=== PATIENT | female | born 1960 | race Caucasian/White ===

== ENCOUNTER 2020-12-19 07:28 | Outpatient (CLI) | payer OTHER ==
[~2020-12-19 07:28] MED LIST: ANTIVERT12.5 MG PO; INTESTINEX1 CAP PO; NEXIUM10 MG; PROTONIX40 MG PO; TOPROL XL25 MG; [UNRECOGNIZED DRUG - OTHER]
== END 2020-12-19 07:43 | disposition home or self-care (01) ==
LOC: TOM 07:28
PROVIDERS: ATTEND Internal Medicine Gastroenterology
DX: K57.90 Diverticulosis of intestine, part unspecified, without perforation or abscess without bleeding (principal); Z12.11 Encounter for screening for malignant neoplasm of colon

== ENCOUNTER 2021-07-08 07:56 | Emergency (ER) | payer OTHER ==
[~2021-07-08] VITALS: Ht 157.5 cm; Wt 70.3 kg
== END 2021-07-08 14:23 ==
LOC: ER 07:56
DX: M54.2 Cervicalgia (principal)

== ENCOUNTER 2022-07-27 06:15 | Day surgery (SDC) | payer OTHER ==
[~2022-07-27] VITALS: Ht 157.5 cm; Wt 65.8 kg
[~2022-07-27 06:15] MED LIST changes: +ATORVASTATIN CA20 MG; +NEXIUM2.5 MG PO
== END 2022-07-27 16:15 | disposition home or self-care (01) ==
LOC: CIR.AMB 06:15
PROVIDERS: ATTEND Urology
DX: N20.1 Calculus of ureter (principal); Z88.5 Allergy status to narcotic agent; Z20.822 Contact with and (suspected) exposure to COVID-19; I10 Essential (primary) hypertension

== ENCOUNTER 2022-08-02 07:04 | Outpatient (CLI) | payer OTHER | END 2022-08-02 07:16 | disposition home or self-care (01) | LOC: RAD 07:04 | PROVIDERS: ATTEND Urology | DX: N20.0 Calculus of kidney (principal) ==

== ENCOUNTER 2022-08-15 07:41 | Outpatient (CLI) | payer OTHER | END 2022-08-15 07:55 | disposition home or self-care (01) | LOC: TOM 07:41 | PROVIDERS: ATTEND Urology | DX: N20.0 Calculus of kidney (principal) ==

== ENCOUNTER 2022-11-26 10:51 | Inpatient (IN) | payer OTHER ==
[~2022-11-26] VITALS: Ht 99.1 cm; Wt 63.5 kg
== END 2022-11-30 11:58 | disposition home or self-care (01) | DRG 661 ==
LOC: ER 10:51 → SURG 11-27 00:02
PROVIDERS: Emergency Medicine; ADMIT Urology; ATTEND Urology
PROC: BW21ZZZ Computerized Tomography (CT Scan) of Abdomen and Pelvis (ICD-10-PCS; 2022-11-26)
PROC: 0TP98DZ Removal of Intraluminal Device from Ureter, Via Natural or Artificial Opening Endoscopic (ICD-10-PCS; 2022-11-27)
PROC: 0T788DZ Dilation of Bilateral Ureters with Intraluminal Device, Via Natural or Artificial Opening Endoscopic (ICD-10-PCS; principal; 2022-11-27 14:45)
DX: N20.1 Calculus of ureter (principal); Z20.822 Contact with and (suspected) exposure to COVID-19

== ENCOUNTER 2022-12-03 07:06 | Outpatient (CLI) | payer OTHER | END 2022-12-03 07:17 | disposition home or self-care (01) | LOC: RAD 07:06 | PROVIDERS: ATTEND Urology | DX: N20.0 Calculus of kidney (principal) ==

== ENCOUNTER 2022-12-25 10:12 | Day surgery (SDC) | payer OTHER ==
[2022-12-18 10:16] LABS: HEMATOCRIT 39.7 % (36.0-45.00); HEMOGLOBIN 13.5 g/dL (12.0-15.00); MEAN CELL VOLUME 87.6 fL (80.00-100.00); MEAN CORPUSCULAR HEMOGLOBIN 29.7 pg (27.00-32.0); MEAN CORPUSCULAR HGB CONC 33.9 g/dl (32.0-36.0); PLATELET COUNT 298 K/uL (150-450); RED BLOOD COUNT 4.53 M/uL (4.00-6.00); RED CELL DISTRIBUTION WIDTH 13.4 % (11.5-14.5)
[2022-12-18 10:55] LABS: PH,URINE 5.5 (5.0-8.0); URINE APPEARANCE Turbid; URINE BILIRRUBIN Small (NEGATIVE); URINE BLOOD Large; URINE COLOR Orange; URINE GLUCOSE Negative (NEGATIVE); URINE LEUKOCYTE Moderate; URINE NITRATE Negative; URINE UROBILINOGEN 0.2 E.U./dl
[2022-12-18 10:59] LABS: URINE BACTERIA 442.2 uL (0.0-1933); URINE EPITHELIAL CELLS 61.6 uL (0.0-38.8); URINE WBC 491.6 uL (0.0-23.2)
[2022-12-18 11:12] LABS: INR 0.96; PARTIAL THROMBOPLASTIN TIME 24.2 SECONDS (22.0-34.0); PROTHROMBIN TIME 10.1 SECONDS (9.0-11.5)
[2022-12-18 11:14] LABS: CALCIUM 9.3 mg/dL (8.5-10.1); CREATININE SERUM 0.74 mg/dL (0.55-1.02); GFR 79.01; POTASSIUM 3.57 mEq/L (3.5-5.1)
[2022-12-18 11:51] LABS: URINE PROTEIN 300 (NEGATIVE); URINE RBC > 10558.9 uL (0.0-20.8)
[~2022-12-25] VITALS: Ht 157.5 cm; Wt 67.6 kg
[~2022-12-25 10:12] MED LIST changes: +FAMOTID PO; +LOSARTAN POTAS100 MG PO; +TOPROL XL50 M1 PO
[2022-12-25] MEDS ORDERED: LEVOFLOXACIN500 MG PO (15:31)
[2022-12-25] MEDS ORDERED: DICLOFENAC SODI50 MG PO (15:32)
[2022-12-25] MEDS ORDERED: PYRIDIUM200 MG PO (15:32)
[2022-12-25] MEDS ORDERED: TAMS0.4C PO (15:33)
== END 2022-12-25 21:50 | disposition home or self-care (01) ==
LOC: CIR.AMB 10:12
PROVIDERS: ATTEND Surgery
DX: N20.1 Calculus of ureter (principal); Z20.822 Contact with and (suspected) exposure to COVID-19; E78.5 Hyperlipidemia, unspecified; I10 Essential (primary) hypertension

== ENCOUNTER 2023-02-20 07:10 | Outpatient (CLI) | payer OTHER ==
[~2023-02-20 07:10] MED LIST changes: +DICLOFENAC SODI50 MG PO; +LEVOFLOXACIN500 MG PO; +PYRIDIUM200 MG PO; +TAMS0.4C PO
== END 2023-02-20 07:19 | disposition home or self-care (01) ==
LOC: SONOGRAMA 07:10
PROVIDERS: ATTEND Surgery
DX: N20.0 Calculus of kidney (principal)